=== PATIENT | female | born 1950 | race Caucasian/White ===

== ENCOUNTER 2018-11-02 15:25 | Inpatient (IN) | payer MEDICARE, OTHER ==
[2018-11-11] MEDS: TRANEXAMIC ACID 1GM/100ML(PMX) 100 ML IVPB (06:00)
[2018-11-11] MEDS: SOD CHLORIDE 0.9% 100 ML, TRANEXAMIC ACID 3,000 MG IRR (06:00)
[2018-11-11] MEDS: CEFAZOLIN 2 GM/50 ML (PMX) 50 ML IVPB (06:00)
[2018-11-11] MEDS: DEXAMETHASONE 1 MG TAB PO (06:14)
[2018-11-11] MEDS: GABAPENTIN 300 MG CAP PO ×2 (06:14→20:19)
[2018-11-11] MEDS: LACTATED RINGER'S 1,000 ML IV ×3 (06:27→17:03)
[2018-11-11] MEDS ORDERED: BUPIVACAINE 0.5% (SDV) 30 ML, morphine SULFATE (PF) 8 MG, EPINEPHrine 0.3 MG, KETOROLAC... IRR (06:30)
[2018-11-11] MEDS: POLYMYXIN/BACITRACIN 1L IRRIG (06:47)
[2018-11-11] MEDS ORDERED: THROMBIN 5000 UNIT VIAL (06:47)
[2018-11-11] MEDS ORDERED: CA CHLORIDE (GM) 10% 10 ML INJ (06:47)
[2018-11-11] MEDS ORDERED: HYDROmorphONE 1 MG/5 ML IV SYRINGE IV (07:00)
[2018-11-11] MEDS ORDERED: ALBUTEROL 0.083% (NEB) 2.5 MG/3 ML AMP HHN (07:00)
[2018-11-11] MEDS ORDERED: DIPHENHYDRAMINE 50 MG INJ IV ×2 (07:00→09:00)
[2018-11-11] MEDS ORDERED: METOCLOPRAMIDE 10 MG INJ IV (07:00)
[2018-11-11] MEDS ORDERED: MIDAZOLAM 1 MG/ML 2 ML INJ (07:00)
[2018-11-11] MEDS ORDERED: FENTAnyl 50 MCG/ML VIAL IV ×2 (07:00)
[2018-11-11] MEDS ORDERED: FENTAnyl 50 MCG/ML VIAL (07:35)
[2018-11-11] MEDS ORDERED: NEOSTIGMINE 3 MG/3 ML SYRINGE (08:48)
[2018-11-11] MEDS ORDERED: LIDOCAINE 100 MG SYRINGE (08:48)
[2018-11-11] MEDS ORDERED: CEFAZOLIN 1 GM INJ (08:48)
[2018-11-11] MEDS ORDERED: GLYCOPYRROLATE 0.4 MG INJ (08:48)
[2018-11-11] MEDS ORDERED: SUCCINYLCHOLINE CHLORIDE 100 MG/5 ML SYG IV (08:48)
[2018-11-11] MEDS ORDERED: TRANEXAMIC ACID 1GM/100ML(PMX) 100 ML (08:48)
[2018-11-11] MEDS ORDERED: ROCURONIUM 50 MG INJ (08:48)
[2018-11-11] MEDS ORDERED: PROPOFOL 20 ML (08:48)
[2018-11-11] MEDS ORDERED: ZOLPIDEM 5 MG TAB PO (09:00)
[2018-11-11] MEDS: SENNA/DOCUSATE NA (8.6MG/50MG) TAB PO ×3 (09:00→20:19)
[2018-11-11] MEDS ORDERED: ONDANSETRON 4 MG INJ IV (09:00)
[2018-11-11] MEDS ORDERED: MAGNESIUM HYDROXIDE 30ML CUP PO (09:00)
[2018-11-11] MEDS ORDERED: NACL 0.9% 3 ML SYG IV (09:00)
[2018-11-11] MEDS: ONDANSETRON 4 MG INJ IV (09:38)
[2018-11-11] MEDS: MEPERIDINE 25 MG INJ IV (09:38)
[2018-11-11] MEDS: CEFAZOLIN 1 GM/50 ML (PMX) 50 ML IVPB ×2 (09:55→17:03)
[2018-11-11] MEDS: ACETAMINOPHEN 1000MG/100ML IV 100 ML IVPB ×2 (09:55→17:03)
[2018-11-11 10:33] LABS: ADD MAN DIFF? NO
[2018-11-11 10:34] LABS: BASOPHIL # 0.1 10^3/ul (0.0-0.1); BASOPHILS % 0.5 % (0.0-2.0); EOSINOPHILS % 0.1 % (0.0-7.0); HEMATOCRIT 33.5 % (37.0-47.0); HEMOGLOBIN 10.8 g/dl (12.0-16.0); LYMPHOCYTES # 0.8 10^3/ul (0.8-2.9); LYMPHOCYTES % 7.4 % (15.0-51.0); MEAN CORPUSCULAR HEMOGLOBIN 31.8 pg (29.0-33.0); MEAN CORPUSCULAR HGB CONC 32.2 g/dl (32.0-37.0); MEAN CORPUSCULAR VOLUME 98.5 fl (82.0-101.0); MEAN PLATELET VOLUME 10.1 fl (7.4-10.4); MONOCYTE # 0.3 10^3/ul (0.3-0.9); MONOCYTES % 2.6 % (0.0-11.0); NEUTROPHIL # 9.7 10^3/ul (1.6-7.5); NEUTROPHILS % 88.8 % (39.0-77.0); PLATELET COUNT 176 10^3/UL (140-415); RED CELL DISTRIBUTION WIDTH 12.7 % (11.5-14.5)
[2018-11-11] MEDS: DEXAMETHASONE 2 MG TAB PO ×3 (11:16→23:44)
[2018-11-11] MEDS: oxyCODONE 5 MG TAB PO ×4 (11:17→22:40)
[2018-11-11] MEDS: BENAZEPRIL 40 MG TAB PO (16:00)
[2018-11-11] MEDS: HYDROmorphONE 1 MG/ML SYG IV ×2 (19:33→23:34)
[2018-11-11] MEDS: ATORVASTATIN 40 MG TAB PO (20:19)
[2018-11-12] MEDS: CEFAZOLIN 1 GM/50 ML (PMX) 50 ML IVPB (00:39)
[2018-11-12] MEDS: ACETAMINOPHEN 1000MG/100ML IV 100 ML IVPB (01:51)
[2018-11-12] MEDS: HYDROmorphONE 1 MG/ML SYG IV (03:51)
[2018-11-12 05:00] LABS: ADD MAN DIFF? NO
[2018-11-12 05:01] LABS: WHITE BLOOD COUNT 10.8 10^3/ul (4.8-10.8)
[2018-11-12 05:01] LABS: BASOPHILS % 0.1 % (0.0-2.0); HEMATOCRIT 31.7 % (37.0-47.0); HEMOGLOBIN 10.4 g/dl (12.0-16.0); LYMPHOCYTES # 0.7 10^3/ul (0.8-2.9); LYMPHOCYTES % 6.5 % (15.0-51.0); MEAN CORPUSCULAR HEMOGLOBIN 31.7 pg (29.0-33.0); MEAN CORPUSCULAR HGB CONC 32.8 g/dl (32.0-37.0); MEAN CORPUSCULAR VOLUME 96.6 fl (82.0-101.0); MEAN PLATELET VOLUME 10.8 fl (7.4-10.4); MONOCYTE # 0.6 10^3/ul (0.3-0.9); MONOCYTES % 5.4 % (0.0-11.0); NEUTROPHIL # 9.5 10^3/ul (1.6-7.5); NEUTROPHILS % 87.5 % (39.0-77.0); PLATELET COUNT 173 10^3/UL (140-415); RED BLOOD COUNT 3.28 10^6/ul (4.20-5.40); RED CELL DISTRIBUTION WIDTH 12.8 % (11.5-14.5)
[2018-11-12] MEDS: LACTATED RINGER'S 1,000 ML IV ×2 (05:06→06:00)
[2018-11-12] MEDS: oxyCODONE 5 MG TAB PO ×3 (05:08→13:08)
[2018-11-12] MEDS: SENNA/DOCUSATE NA (8.6MG/50MG) TAB PO (08:45)
[2018-11-12] MEDS: ASPIRIN (EC) 325 MG TAB PO (08:45)
[2018-11-12] MEDS: DEXAMETHASONE 2 MG TAB PO (08:45)
[2018-11-12] MEDS: BENAZEPRIL 40 MG TAB PO (08:46)
[2018-11-13] MEDS ORDERED: MAGNESIUM HYDROXIDE 30ML CUP PO (21:00)
== END 2018-11-12 15:30 | disposition home or self-care (01) | DRG 470 ==
LOC: REC 15:25 → MS1 11-11 10:13
PROVIDERS: Orthopaedic Surgery
PROC: 0SRB03Z Replacement of Left Hip Joint with Ceramic Synthetic Substitute, Open Approach (ICD-10-PCS; principal; 2018-11-11 07:00)
DX: M16.12 Unilateral primary osteoarthritis, left hip (principal)
CPT/HCPCS: 72170; 73530; 85025; 86999; 87086; 88304; 88311; 97116; 97161; 97530